=== PATIENT | female | born 2000 | race African-American/Black ===

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

== ENCOUNTER 2023-04-04 09:26 | Emergency (ER) | payer OTHER ==
[~2023-04-04] VITALS: Ht 170.2 cm; Wt 87.7 kg
[2023-04-04 09:35] VITALS: O2SAT 100
[2023-04-04 14:07] LABS: CLARITY URINE CLOUDY (CLEAR); COLOR URINE DARK YELLOW (YELLOW); KETONES URINE 3+ (NEGATIVE); LEUKOCYTE ESTERASE URINE 1+ (NEGATIVE); NITRITE URINE NEGATIVE (NEGATIVE); OCCULT BLOOD URINE 1+ (NEGATIVE); PROTEIN URINE TRACE (NEGATIVE); SPECIFIC GRAVITY URINE 1.034 (1.005-1.030)
[2023-04-04] MEDS ORDERED: IBUPROFEN 600MG TABLET PO STA (14:20)
[2023-04-04] MEDS ORDERED: NAPR-681 PO (15:39)
[2023-04-04] MEDS ORDERED: FLUC150T46 MT (15:39)
[2023-04-04] MEDS ORDERED: SULF1TAB48 PO (15:39)
[2023-04-04 16:12] VITALS: BP 121/78; PULSE 80; RESP 18; TEMP 97.7
[2023-04-07 06:08] LABS: NEISSERIA GONORRHOEAE NAA Negative (Negative)
== END 2023-04-04 16:12 | disposition home or self-care (01) ==
LOC: ER 10:06
DX: N39.0 Urinary tract infection, site not specified (principal); N76.0 Acute vaginitis
CPT/HCPCS: 81003; 81025; 86592; 87210; 87491; 87591; 99283